=== PATIENT | male | born 1995 | race Two or more races ===

== ENCOUNTER 2024-06-21 23:37 | Emergency (ER) | payer MEDICAID, OTHER ==
[~2024-06-21] VITALS: Ht 177.8 cm; Wt 75.0 kg
[2024-06-21 23:45] VITALS: PULSE 87; RESP 18; O2SAT 98
[2024-06-22] MEDS: HYDROcodone-ACET 10/325MG TAB PO ONE (00:31)
[2024-06-22] MEDS: IBUPROFEN 800 MG TAB PO ONE (00:31)
[2024-06-22] MEDS ORDERED: IBUP200T76 PO (02:27)
[2024-06-22] MEDS ORDERED: HYDR-4798 PO (02:27)
[2024-06-22 02:30] VITALS: BP 112/68; PULSE 66; RESP 15; O2SAT 97
== END 2024-06-22 03:06 | disposition home or self-care (01) ==
LOC: ER 23:37 → EDBD 23:37 → ER 06-22 03:06
DX: S02.2XXA Fracture of nasal bones, initial encounter for closed fracture (principal); H05.232 Hemorrhage of left orbit; F17.210 Nicotine dependence, cigarettes, uncomplicated; Y04.0XXA Assault by unarmed brawl or fight, initial encounter; Y93.89 Activity, other specified; Y92.89 Other specified places as the place of occurrence of the external cause; Y99.8 Other external cause status
CPT/HCPCS: 12011; 70450; 70486